=== PATIENT | female | born 1945 | race African-American/Black ===

== ENCOUNTER → 2019-06-12 | Outpatient (CLI) | payer MEDICARE, BC ==
--- NOTE | 2019-06-24 17:58 | RAD ---
History: Routine screening. Technique: Bilateral digital mammographic routine views were obtained with CAD - computer aided detection. Comparison: April 09, 2018. Findings: Breast Tissue Density B :The breast tissue is composed of mixed fatty and fibroglandular tissue. There are no suspicious masses, microcalcifications or areas of architectural distortion. Impression: Negative mammogram. BI-RADS Category 1: Negative. Normal interval followup. A mammogram does not have 100% sensitivity and therefore a negative imaging study should not delay further work up of a suspicious abnormality. The patient will receive a letter with the results in the mail. Patient information is entered into the reminder system with a target due date for the next screening mammogram. The patient will receive a reminder. "Our facility is accredited by the [employer] Mammography Program." BI-RADS 1 -- negative findings (within normal)
== END | disposition home or self-care (01) ==
LOC: MAMMO 10:50
PROVIDERS: ATTEND Family Medicine
DX: Z12.31 Encounter for screening mammogram for malignant neoplasm of breast (principal); N64.89 Other specified disorders of breast
CPT/HCPCS: 77063; 77067

== ENCOUNTER 2019-11-01 23:28 | Emergency (ER) | payer MEDICARE, BC ==
[~2019-11-01] VITALS: Ht 172.7 cm; Wt 94.5 kg
--- NOTE | 2019-11-02 00:01 | PHYS DOC ---
Past History Past Medical History: Arthritis, Arrhythmia, CAD, Heart Disease, Hypertension, Other Additional Past Medical Histor: BOWEL OBSTRUCTION Past Surgical History: Hysterectomy, Knee Replacement, Other Additional Past Surgical Histo: GASTRIC SLEEVE, KNEE SX Alcohol Use: None General Adult EDM: Chief Complaint: ABDOMINAL PAIN HPI: HPI: ".. I hurt so bad.... all over.. It started..after eating a salad yesterday... But I do get bowel obstructions ...2 other hospitalizations for bowel obstruction.... Have an old gastric sleeve... I did have some spitting up stuff and I did have a small bowel movement today and some gas... But now nothing is coming out from below... I usually go to [place] when I get hurting this bad...".." People really prefer... not to do surgery on me.. sometimes ... they just wait it out..." Patient is a 74 year old female who presents with above hx and complaints of severe abdomen pain since yesterday. Patient has not eaten anything since salad yesterday at noon. Patient's pain has persisted and grown more severe. Patient did have a small bowel movement today with some passage of gas but currently is not passing any gas or stool. Patient has had history of 2 previous admission for bowel obstructions. Patient has had abdomen surgery of gastric sleeve in 2015. Patient normally follows with Dr. Lange for care of her hypertension and other medical issues.. Patient states he has had previous episodes of ileus which usually resolve with hydration and waiting for the ileus to pass. Review of Systems: Review of Systems: Constitutional: Denies fever or chills Eyes: Denies change in visual acuity HENT: Denies nasal congestion or sore throat Respiratory: Denies cough or shortness of breath Cardiovascular: Denies chest pain or edema GI: Complains of abdominal pain, nausea, vomiting. Denies bloody stools or diarrhea : Denies dysuria Musculoskeletal: Denies back pain or joint pain Integument: Denies rash Neurologic: Denies headache, focal weakness or sensory changes Endocrine: Denies polyuria or polydipsia Lymphatic: Denies swollen glands Psychiatric: Denies depression or anxiety Heart Score: HEART Score for Chest Pain: HEART Score for Chest Pain Response (Comments) Value History Moderately Suspicious 1 ECG Nonspecific Repolarizatio 1 Age > 65 2 Risk Factors >3 Risk Factors or Hx CAD 2 Troponin < Normal Limit 0 Total 6 Risk Factors: Risk Factors: DM, Current or recent (<one month) smoker, HTN, HLP, family history of CAD, obesity. Risk Scores: Score 0 - 3: 2.5% MACE over next 6 weeks - Discharge Home Score 4 - 6: 20.3% MACE over next 6 weeks - Admit for Clinical Observation Score 7 - 10: 72.7% MACE over next 6 weeks - Early Invasive Strategies Family History: Family History: Noncontributory to presentation Current Medications: Current Meds: See nursing for home meds Allergies: Allergies: Allergies Coded Allergies Type Severity Reaction Last Updated Verified codeine Allergy Mild NAUSEA 11/01/19 Yes Physical Exam: PE: Constitutional: In acute distress, non-toxic appearance. [] HENT: Normocephalic, atraumatic, bilateral external ears normal, oropharynx dry, no oral exudates, nose normal. [] Eyes: PERRLA, EOMI, conjunctiva normal, no discharge. Glasses Neck: Normal range of motion, no tenderness, supple, no stridor. [] Cardiovascular: Tachycardia heart rate regular rhythm, no murmur [] PMI to the left Lungs & Thorax: Bilateral breath sounds equal at apexes with few scattered wheezes on o auscultation [] Abdomen: Bowel sounds hyperactive l, soft, generalized tenderness, no masses, no pulsatile masses. Distended and tympanic. Multiple surgery scars. No focal areas on rebound. Skin: Warm, diaphoretic, no erythema, no rash. [] Back: No tenderness, no CVA tenderness. [] Extremities: No tenderness, no cyanosis, no clubbing, ROM intact, ankle edema. [] Arthritic changes. No true psoas sign. Rt. knee scar. Neurologic: Alert and oriented X 3, normal motor function, normal sensory function, no focal deficits noted. [] Psychologic: Affect anxious, judgement normal, mood normal. [] Current Patient Data: Vital Signs: Vital Signs Date Time Temp Pulse Resp B/P (MAP) Pulse Ox O2 Delivery O2 Flow Rate FiO2 11/01/19 23:45 97.6 92 24 181/94 (123) 100 Room Air EKG: EKG: My interpretation of EKG shows a sinus rhythm at 89 bpm. Does have bimodal P waves left axis deviation and a fascicular block. Abnormal repolarization. Does appear to have a strain pattern .[] Radiology/Procedures: Radiology/Procedures: My interpretation of acute abdomen film shows no acute cardiopulmonary findings does have calcified node on right cardiac border. There is no free air under the diaphragm., But obvious dilated bowel loops consistent with ileus. No obvious free air on film. Follow-up x-ray shows NG at the level of her gastric sleeve. [][address] [address] IMAGING REPORT Signed PATIENT: ALEX CHOI ACCOUNT: [id number] : 1945 LOCATION: ER AGE: 74 SEX: F EXAM STATUS: REG ER ORD. PHYSICIAN: LEAH RODRIGUEZ MD REASON: severe abdominal pain PROCEDURE: ACUTE ABDOMEN SERIES EXAM: 1. 2 VIEW ABDOMEN WITH ONE VIEW CHEST, 1242. 2. ABDOMEN ONE VIEW, 0128 HISTORY: Abdominal pain, line placement. COMPARISON: None. FINDINGS: A frontal view of the chest and supine/upright views of the abdomen are obtained. There are mild airspace opacities in the left midlung. There is no pneumothorax or pleural effusion. The heart is not enlarged. Calcified granulomas are noted in the right inferior hilum. There are moderately distended small bowel loops throughout the mid abdomen. There is no pneumoperitoneum. There is a small amount of gas distally. The second examination demonstrates multiple adjustment of a nasogastric tube. On the final image the proximal sidehole is at the gastroesophageal junction. IMPRESSION: 1. Mild airspace infiltrates in the left midlung. 2. Findings consistent with small bowel obstruction. 3. Recommend advancement of the nasogastric tube by 5 cm. Electronically signed by: Chelo Escalona MD (11/02/2019 3:55 AM) [facility] DICTATED AND SIGNED BY: MATTHEW ESCALONA MD DATE: 11/02/19 0355 CC: LEAH RODRIGUEZ MD; LOUISA YIN MD ~ [address] [address] IMAGING REPORT Signed PATIENT: ALEX CHOI ACCOUNT: [id number] : 1945 LOCATION: ER AGE: 74 SEX: F EXAM STATUS: REG ER ORD. PHYSICIAN: LEAH RODRIGUEZ MD REASON: bowel obstruction, oral down ng by rns, waited 1hr,20 min PROCEDURE: CT ABD PEL W/ORAL CONTRST ONLY EXAM: CT ABDOMEN/PELVIS WITHOUT CONTRAST. HISTORY: Small bowel obstruction. TECHNIQUE: Computed tomography of the abdomen and pelvis was performed without intravenous contrast. One or more of the following individualized dose reduction techniques were utilized for this examination: 1. Automated exposure control. 2. Adjustment of the mA and/or kV according to patient size. 3. Use of iterative reconstruction technique. COMPARISON: None. FINDINGS: Lung windows through the visualized portions of the bases reveal an airspace infiltrate in the left midlung. There is atelectasis in the bases. There are calcified granulomas in the right base and right anterior hilum. Bone windows reveal no suspicious lesions. A nasogastric tube has in the stomach. There is a small hiatal hernia. The stomach appears within partially resected. The proximal small bowel is dilated to a transition point in the distal jejunum or proximal ileum just to the left of midline on image 100. Feculent material proximal to this point indicates a component of chronic narrowing. The distal small bowel is decompressed. There is no evidence of appendicitis. There are calcified granulomas in the liver and spleen. The gallbladder is surgically absent. The pancreas, adrenal glands and kidneys are unremarkable. IMPRESSION: 1. Small bowel obstruction with transition point in the left of midline at the level of the umbilicus. 2. Pneumonic infiltrate left midlung. 3. Small hiatal hernia. Electronically signed by: Chelo Escalona MD (11/02/2019 4:42 AM) [facility] DICTATED AND SIGNED BY: MATTHEW ESCALONA MD DATE: 11/02/19441 CC: LEAH RODRIGUEZ MD; LOUISA YIN MD ~ Course & Med Decision Making: Course & Med Decision Making Pertinent Labs and Imaging studies reviewed. (See chart for details) Discussed presentation, testing and treatment plan with he will accept pt at [facility] Discussed surgical consult with Dr. Limon. Multiple attempts to advance NG past her gastric sleeve area. Unable to pass t ube in it current position in area of gastric sleeve. Impression: 1. Abdomen pain 2. Ileus-small bowel - Level distal jejunum or proximal ileum. 3. Elevated segs88 4. Hypokalemia 3.2 5. Elevated creatinine 1.1 6. History of diabetes glucose 136 7. Elevated lactic acid 2.3- repeat Lactic 1.1 8. Left mid pulmonary infiltrate pulmonary infiltrate-pneumonia and atelectasis [] Dragon Disclaimer: oKfi Disclaimer: This electronic medical record was generated, in whole or in part, using a voice recognition dictation system. Departure Departure: Disposition: 01 HOME/RESIDENCE PRIOR TO ADM Condition: STABLE Referrals: LOUISA YIN MD (PCP) Kofi Disclaimer This chart was dictated in whole or in part using Voice Recognition software in a busy, high-work load, and often noisy Emergency Department environment. It may contain unintended and wholly unrecognized errors or omissions. LEAH RODRIGUEZ MD November 02, 2019 00:01
[2019-11-02] MEDS ORDERED: IV RINGERS SOLUTION,LACTATED 1,000 ML IV SCH (00:30)
[2019-11-02] MEDS ORDERED: ONDANSETRON PF 4 MG/2 ML VIAL. IVP ONE (00:30)
[2019-11-02] MEDS ORDERED: MORPHINE SULFATE 10 MG/ML SYRINGE. SQ ONE ×2 (00:30→04:00)
[2019-11-02] MEDS ORDERED: FAMOTIDINE 20 MG/2 ML VIAL IVP ONE (00:30)
[2019-11-02 00:46] LABS: BASO % 0 % (0-3); EOS % 0 % (0-3); HEMATOCRIT 39.9 % (36.0-47.0); HEMOGLOBIN 13.4 g/dL (12.0-15.5); LYMPH # 0.9 x10^3/uL (1.0-4.8); LYMPH % 9 % (24-48); MEAN CORPUSCULAR HEMOGLOBIN 32 pg (25-35); MEAN CORPUSCULAR HGB CONC 34 g/dL (31-37); MEAN CORPUSCULAR VOLUME 97 fL (79-100); MONO # 0.4 x10^3/uL (0.0-1.1); MONO % 4 % (0-9); NEUT # 9.2 x10^3uL (1.8-7.7); NEUT % 87 % (31-73); PLATELET COUNT 152 x10^3/uL (140-400); RED BLOOD COUNT 4.13 x10^6/uL (3.50-5.40); RED CELL DISTRIBUTION WIDTH 14.8 % (11.5-14.5); WHITE BLOOD COUNT 10.6 x10^3/uL (4.0-11.0)
[2019-11-02 00:54] LABS: CALCIUM 10.4 mg/dL (8.5-10.1); CREATININE 1.1 mg/dL (0.6-1.0); GFR 58.7; POTASSIUM 3.2 mmol/L (3.5-5.1)
--- NOTE | 2019-11-02 00:59 | EKG ---
[address] [address] Test Date: 2019-11-02 Test Time: 00:30:14 Pat Name: ALEX CHOI Department: Room: Gender: F Medical Assistant Cardiology: : 1945 Requested By: LEAH RODRIGUEZ Order Number: [id number] Reading MD: Allan Galdamez MD Measurements Intervals [place] Rate: 89 P: 0 NC: 140 QRS: -48 QRSD: 134 T: 32 QT: 398 QTc: 485 Interpretive Statements SINUS RHYTHM LEFT ATRIAL ABNORMALITY ABNORMAL LEFT AXIS DEVIATION LEFT ANTERIOR FASCICULAR BLOCK RIGHT BUNDLE BRANCH BLOCK BIFASCICULAR BLOCK RVH WITH REPOLARIZATION ABNORMALITY ABNORMAL ECG Electronically Signed On 11-04-2019 14:20:44 CDT by Allan Galdamez MD
[2019-11-02 01:00] LABS: ALBUMIN 3.9 g/dL (3.4-5.0); DIRECT BILIRUBIN 0.2 mg/dL (0.0-0.2); TOTAL BILIRUBIN 0.8 mg/dL (0.2-1.0); TOTAL PROTEIN 7.7 g/dL (6.4-8.2)
[2019-11-02 01:02] LABS: BGAS PH 7.6 (7.35-7.45)
[2019-11-02] MEDS ORDERED: IOHEXOL 240 MG/ML 50ML VIAL. ONE (01:11)
[2019-11-02 01:49] LABS: % BANDS 3 % (0-9); % LYMPHS 6 % (24-48); % MONOS 3 % (0-10); % SEGS 88 % (35-66); PLT ESTIMATE ADEQUATE (ADEQUATE)
[2019-11-02] MEDS ORDERED: CONTRAST GIVEN MC PRN (02:30)
[2019-11-02] MEDS ORDERED: IV NORMAL SALINE 50ML 50 ML ONE (02:33)
[2019-11-02] MEDS ORDERED: cefTRIAXone SODIUM 1 GM VIAL ONE (02:33)
[2019-11-02] MEDS ORDERED: IOHEXOL 240 MG/ML 50ML VIAL. PO ONE (03:00)
[2019-11-02] MEDS ORDERED: IV RINGERS SOLUTION,LACTATED 1,000 ML IV ONE (03:15)
--- NOTE | 2019-11-02 03:58 | RAD ---
EXAM: 1. 2 VIEW ABDOMEN WITH ONE VIEW CHEST, 1242. 2. ABDOMEN ONE VIEW, 0128 HISTORY: Abdominal pain, line placement. COMPARISON: None. FINDINGS: A frontal view of the chest and supine/upright views of the abdomen are obtained. There are mild airspace opacities in the left midlung. There is no pneumothorax or pleural effusion. The heart is not enlarged. Calcified granulomas are noted in the right inferior hilum. There are moderately distended small bowel loops throughout the mid abdomen. There is no pneumoperitoneum. There is a small amount of gas distally. The second examination demonstrates multiple adjustment of a nasogastric tube. On the final image the proximal sidehole is at the gastroesophageal junction. IMPRESSION: 1. Mild airspace infiltrates in the left midlung. 2. Findings consistent with small bowel obstruction. 3. Recommend advancement of the nasogastric tube by 5 cm. Electronically signed by: Chelo Escalona MD (11/02/2019 3:55 AM) [facility]
--- NOTE | 2019-11-02 04:45 | RAD ---
EXAM: CT ABDOMEN/PELVIS WITHOUT CONTRAST. HISTORY: Small bowel obstruction. TECHNIQUE: Computed tomography of the abdomen and pelvis was performed without intravenous contrast. One or more of the following individualized dose reduction techniques were utilized for this examination: 1. Automated exposure control. 2. Adjustment of the mA and/or kV according to patient size. 3. Use of iterative reconstruction technique. COMPARISON: None. FINDINGS: Lung windows through the visualized portions of the bases reveal an airspace infiltrate in the left midlung. There is atelectasis in the bases. There are calcified granulomas in the right base and right anterior hilum. Bone windows reveal no suspicious lesions. A nasogastric tube has in the stomach. There is a small hiatal hernia. The stomach appears within partially resected. The proximal small bowel is dilated to a transition point in the distal jejunum or proximal ileum just to the left of midline on image 100. Feculent material proximal to this point indicates a component of chronic narrowing. The distal small bowel is decompressed. There is no evidence of appendicitis. There are calcified granulomas in the liver and spleen. The gallbladder is surgically absent. The pancreas, adrenal glands and kidneys are unremarkable. IMPRESSION: 1. Small bowel obstruction with transition point in the left of midline at the level of the umbilicus. 2. Pneumonic infiltrate left midlung. 3. Small hiatal hernia. Electronically signed by: Chelo Escalona MD (11/02/2019 4:42 AM) [facility]
[2019-11-02 05:00] VITALS: BP 152/84
[2019-11-02 06:15] LABS: BARBITURATES NEG (NEG); BENZODIAZEPINES NEG (NEG); CANNABINOIDS NEG (NEG); COCAINE NEG (NEG); METHADONE NEG (NEG); OPIATES POS (NEG); PHENCYCLIDINE NEG (NEG)
[2019-11-02 06:18] LABS: CLARITY,URINE CLOUDY; COLOR,URINE YELLOW; GLUCOSE,URINE NEG (NEG)
[2019-11-02 06:19] LABS: BILIRUBIN,URINE NEG (NEG)
[2019-11-02 06:20] LABS: AMPHETAMINE/METHAMPHETAMINE NEG (NEG); BACTERIA,URINE FEW /HPF (0-FEW); NITRITE,URINE NEG (NEG); RBC,URINE OCC /HPF (0-2); SQUAMOUS EPITHELIAL CELL,UR MANY /LPF
[2019-11-02 06:21] LABS: HYALINE CASTS, URINE OCC /HPF
== END 2019-11-02 05:52 | disposition short-term general hospital (02) ==
LOC: ER 23:28
DX: K56.609 Unspecified intestinal obstruction, unspecified as to partial versus complete obstruction (principal); R11.2 Nausea with vomiting, unspecified; R06.2 Wheezing; R74.0 Nonspecific elevation of levels of transaminase and lactic acid dehydrogenase [LDH]; E87.6 Hypokalemia; R91.8 Other nonspecific abnormal finding of lung field; R10.9 Unspecified abdominal pain; M19.90 Unspecified osteoarthritis, unspecified site; I11.9 Hypertensive heart disease without heart failure; Z90.710 Acquired absence of both cervix and uterus; Z98.890 Other specified postprocedural states; Z88.5 Allergy status to narcotic agent
CPT/HCPCS: 36415; 74018; 74022; 74176; 80048; 80076; 80307; 81001; 82150; 82550; 82803; 83605; 83690; 84484; 85007; 85025; 85610; 85730; 93005; 96361; 96365; 96368; 96372; 96375; 99285; J0696; J2270; J2405; J3490; J7120; Q9966

== ENCOUNTER → 2020-10-12 | Outpatient (CLI) | payer MEDICARE, BC ==
--- NOTE | 2020-10-13 12:40 | RAD ---
DATE: 10/12/2020 10:50 AM EXAM: MG 2D BILAT SCREENING HISTORY: routine screening evaluation. COMPARISON: 06/12/2019 04/09/2018 Bilateral full field craniocaudal and mediolateral oblique images were obtained using digital [employer] ue. This study was interpreted with the benefit of Computerized Aided Detection (CAD). FINDINGS: Breast Density: SCATTERED The breast parenchyma shows scattered fibroglandular densities. Breast par enchyma level B The parenchymal pattern appears stable. No suspicious masses, microcalcifications or architectural distortion is present to suggest malignanc y in either breast. The visualized axillae are unremarkable. IMPRESSION: No mammographic evidence of malignancy. BI-RADS CATEGORY: 1 NEGATIVE RECOMMENDED FOLLOW-UP: 12M 12 MONTH FOLLOW-UP Annual screening mammography is recommended, unless cli nically indicated sooner based on symptoms or change in physical exam. PQRS compliance statement: Patient information was entered into a reminder system with a target due d ate for the next mammogram. Mammography is a sensitive method for finding small breast cancers, but it does not detect them all a nd is not a substitute for careful clinical examination. A negative mammogram does not negate a clin ically suspicious finding and should not result in delay in biopsying a clinically suspicious abnorma lity. "Our facility is accredited by the [employer] Mammography Program." Electronically signed by: Mark Jimenez MD (10/13/2020 12:37 PM) [email or web address]
== END ==
LOC: MAMMO 10:41
PROVIDERS: ATTEND Family Medicine
DX: Z12.31 Encounter for screening mammogram for malignant neoplasm of breast (principal)
CPT/HCPCS: 77067